=== PATIENT | male | born 1960 | race African-American/Black ===

== ENCOUNTER 2018-04-23 13:14 | Emergency (ER) | payer MEDICAID ==
[2018-04-23] MEDS ORDERED: LIDOCAINE 2% VISCOUS SOLN 20 ML UDCUP PO ONE (13:41)
[2018-04-23] MEDS ORDERED: METOCLOPRAMIDE HCL ORAL SOLN 10 MG/10 ML UDCUP PO ONE (13:41)
[2018-04-23] MEDS ORDERED: MAG HYDROX/AL HYDROX/SIMETH SUSP 30 ML UDCUP PO ONE (13:41)
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
[2018-04-23 15:37] VITALS: BP 172/90
== END 2018-04-23 15:36 | disposition home or self-care (01) ==
LOC: ER 13:14
DX: K29.00 Acute gastritis without bleeding (principal); R11.2 Nausea with vomiting, unspecified; R10.9 Unspecified abdominal pain; Z72.0 Tobacco use
CPT/HCPCS: 99284; J3490